=== PATIENT | female | born 1945 | race Caucasian/White ===

== ENCOUNTER 2019-01-27 20:07 | Emergency (ER) | payer MEDICARE, SELFPAY ==
[2019-01-27 20:07] VITALS: BP 129/82; PULSE 72; RESP 18; TEMP 36.6; O2SAT 95; BMI 28.8
--- NOTE | 2019-01-27 22:05 | CT_ITS ---
HISTORY:FALL FALL TECHNIQUE: Multiple axial images were obtained of the brain without intravenous contrast. A radiation dose optimization technique was used for this scan. IV Contrast dosage and agent: None. COMPARISON: None FINDINGS: # of images incl. paperwork: [id number] INFARCT: None HEMORRHAGE: None PARENCHYMAL ATTENUATION:Normal for age MASS: None MIDLINE SHIFT: None BASAL CISTERNS: Patent VENTRICLES: Normal in size and configuration for age PARANASAL SINUSES:Clear MASTOID AIR CELLS: Clear ORBITS:No acute pathology CALVARIUM: No acute pathology OTHER TISSUES: No acute pathology ASPECTS Score for Acute Strokes: 10 CT/Brain/Head without Contrast IMPRESSION: No acute intracranial pathology. Individualized dose optimization techniques were used for this CT. at 2233 Reported and signed by: Nithya Spain DO Electronically Signed: Nithya Spain DO at 22:31 EDT Tel , Service support ,
--- NOTE | 2019-01-27 22:05 | RAD_ITS ---
HISTORY:FALL, PAIN TO RIGHT UPPER ANTERIOR RIBS FALL, PAIN TO RIGHT UPPER ANTERIOR RIBS EXAMINATION/TECHNIQUE: XR Ribs Unilateral W/ PA Chest Min 3 Views: right COMPARISON: None FINDINGS: LINES/DEVICES: None. LUNGS: No consolidation, edema or effusion. No pneumothorax. MEDIASTINUM AND CARDIOVASCULAR STRUCTURES: Cardiac silhouette not enlarged. Central airways and mediastinal contour are unremarkable. There is a hiatal hernia RIBS AND OSSEOUS STRUCTURES: Unremarkable. No evidence of displaced rib fractures. RAD/Ribs Uni Min 3V w/PA Chest IMPRESSION: Hiatal hernia No acute osseous abnormality at 2244 Reported and signed by: Nithya Spain DO Electronically Signed: Nithya Spain DO at 22:42 EDT Tel , Service support ,
--- NOTE | 2019-01-27 22:05 | CT_ITS ---
HISTORY:FALL Comparison:, none TECHNIQUE:CT Spine Cervical W/O Contrast Contiguous axial imagers through the cervical spine with sagittal and coronal reconstructions without intravenous contrast A dose optimization technique was used dring the scan # of images including paperwork:[id number] FINDINGS: Straightening of the normal cervical lordosis There is no spondylolethesis The vertebral body heights are preserved. There is decreased disc space at the level of C4-5 C5-6 and C6-7 No acute fracture. No canal stenosis Mild bilateral neural foraminal narrowing at C2-3 moderate bilaterally at C4-5 C5-6 The odontoid process and lateral masses are unremarkable. No acute soft tisue abnormality There is no apical pneumothorax CT/Spine Cervical without Contras IMPRESSION: Straightening of normal cervical or doses with degenerative change but no evidence of an acute fracture. Individualized dose optimization techniques were used for this CT. at 2234 Reported and signed by: Nithya Spain DO Electronically Signed: Nithya Spain DO at 22:33 EDT Tel , Service support ,
[2019-01-27] MEDS: Diphth,Pertuss(Acell),Tet Vac 0.5 ML Vial IM (22:11)
[2019-01-27 23:00] VITALS: RESP 17
[2019-01-27 23:31] VITALS: BP 167/89; PULSE 68; RESP 17; O2SAT 94
--- NOTE | 2019-01-27 23:43 | ED.DCSUM_ITS ---
- ER Visit Summary Date of Service: 01/27/19 Chief Complaint: Fall History of Present Illness: The patient is a 73 F presenting after fall. Patient states she tripped in her kitchen and fell. She states she landed on her buttock and then her head hit the door jam. She did not lose consciousness. She is not on anticoagulants. She has a bump to the back of her head. She also complains of pain right upper ribs. She states this has started to improve. Denies other complaints. Physical Examination: Vitals are stable. Patient is afebrile. Alert no acute distress. HEENT exam posterior scalp hematoma with abrasion Neck is nontender Lungs are clear and equal bilaterally. Right upper chest wall tenderness with no crepitus Heart is regular rate and rhythm. Abdomen is soft nontender nondistended. Extremities are unremarkable. Skin is warm and dry. No focal neurologic deficit. Remainder of exam is unremarkable. Emergency Department Course and Treatment: Right rib series shows no acute process. CT head and neck show no acute process. She was given Adacel IM. Patient is feeling improved on reevaluation. Advised to follow-up with her primary care physician. Advised return to ED if worsening complaints. Disposition: Discharge home Impression: Status post mechanical fall, closed head injury This note was generated with [employer] dictation software. It may contain incorrect words, spelling, and punctuation that were not noted in review of the chart prior to signing ED Disposition - Plan for ED Patient: Instructions: FALL, Mechanical Referrals: Edda Fish MD [Primary Care Provider] -
[2019-01-27 23:49] VITALS: BP 138/78; PULSE 68; RESP 17; O2SAT 98
== END 2019-01-27 23:49 | disposition home or self-care (01) ==
PROVIDERS: Emergency Provider Emergency Medicine; Family Provider Internal Medicine; PCP Internal Medicine
DX: S00.03XA Contusion of scalp, initial encounter (principal); R07.81 Pleurodynia; W01.198A Fall on same level from slipping, tripping and stumbling with subsequent striking against other object, initial encounter; Y93.9 Activity, unspecified; Y92.000 Kitchen of unspecified non-institutional (private) residence as the place of occurrence of the external cause; Y99.9 Unspecified external cause status; Z79.899 Other long term (current) drug therapy
CPT/HCPCS: 70450; 71101; 72125; 90471; 90715; 99282

== ENCOUNTER 2021-10-25 08:51 | Emergency (ER) | payer MEDICARE, SELFPAY ==
[2021-10-25 08:51] VITALS: BP 118/77; PULSE 84; RESP 18; TEMP 36.3; O2SAT 100; BMI 26.5
--- NOTE | 2021-10-25 09:12 | CT_ITS ---
STUDY: CT FACIAL BONES WITHOUT CONTRAST REASON FOR EXAM: Female, 76 years old. fall, facial pain RADIATION DOSAGE (If Supplied By Facility): CTDIvol = ( 29.38 ) mGy, DLP = ( 532.76 ) mGycm TECHNIQUE: The patient was scanned in a multi detector CT scanner. Sagittal and coronal images were reconstructed. Individualized dose optimization techniques were used for this CT. COMPARISON: None. FINDINGS: Normal soft tissue structures. Normal orbital mathis and orbital contents. Normal nasal bones and anterior nasal spine. Normal facial bones. There is no demonstrated fracture. Normal visualized paranasal sinuses. CT/Sinus/Facial Bone IMPRESSION: Normal unenhanced CT of the facial bones. Electronically Signed: Marvel Yin MD at 10:12 EDT ,
--- NOTE | 2021-10-25 09:12 | CT_ITS ---
STUDY: CT BRAIN WITHOUT CONTRAST REASON FOR EXAM: Female, 76 years old. syncope, fall RADIATION DOSAGE (If Supplied By Facility): CTDIvol = ( 44.99 ) mGy, DLP = ( 779.24 ) mGycm TECHNIQUE: Transaxial CT imaging of the brain was performed without administration of intravenous contrast material. Individualized dose optimization techniques were used for this CT. COMPARISON: No relevant priors. FINDINGS: Normal soft tissue structures. Normal calvarium. Normal size ventricles and extra-axial spaces for the patient''s age. Normal white matter tracts of the cerebral hemispheres. Normal basal ganglia and thalami. Normal brainstem. Normal cerebellum. There is no intracranial hemorrhage. There are no findings of an acute ischemic infarction. Atherosclerotic calcification of the vertebral arteries and cavernous portions of the internal carotid arteries bilaterally. Normal visualized paranasal sinuses. CT/Brain/Head without Contrast IMPRESSION: Normal unenhanced CT scan of the brain. Electronically Signed: Rey Campo MD at 9:56 EDT ,
--- NOTE | 2021-10-25 09:12 | EKG12_ITS ---
Test Reason : SYNCOPE Blood Pressure : / mmHG Vent. Rate : 069 BPM Atrial Rate : 069 BPM P-R Int : 148 ms QRS Dur : 076 ms QT Int : 410 ms P-R-T Axes : 044 008 052 degrees QTc Int : 439 ms Normal sinus rhythm Normal ECG Confirmed by QUINN LANCASTER, JUAN PABLO ([id number]), film editor supervisor JENNIFER MANUEL ([id number]) on 10/26/2021 10:10:58 AM Referred By: DARYL Confirmed By:JUAN PABLO BALL MD
--- NOTE | 2021-10-25 09:13 | EX.ED.DYSGE1 ---
HPI History of Present Illness Chief Complaint: Syncope Informant: patient and spouse/S.O. Onset/Context/Timing Onset: Today Narrative Narrative: Patient presents from home after syncopal episode. She does report having URI symptoms with cough and congestion the past several days. She is not sure if she has had a fever. She has not been eating as much is normal. She became lightheaded today while standing in the bathroom at the sink. She ended up passing out on the kitchen floor and striking her face. She complains of nasal pain. She denies headache or neck pain. She is not on anticoagulants. [facility] Medical History High cholesterol Hx of gastroesophageal reflux (GERD) Hypertension Home Medications Omeprazole [Prilosec] 40 mg PO DAILY 07/28/15 [History Last Taken 10/24/21] hydrochlorothiazide 12.5 mg PO DAILY 01/27/19 [History Last Taken 10/24/21] rosuvastatin 5 mg PO DAILY 10/25/21 [History Last Taken Unknown] Allergy/AdvReac Type Severity Reaction Status Date / Time No Known Allergies Allergy Verified 01/27/19 20:07 Social History Smoking Status: Never smoker ROS ROS ED Constitutional Constitutional ED: Denies chills or fever(s) Eyes Eyes: Denies change in vision ENT ENT ED: Reports other Details: Nasal pain. Epistaxis, resolved ; Denies sore throat Cardiovascular Cardiovascular: Denies chest pain, palpitations or racing heartbeat Respiratory/Chest Respiratory/Chest: Reports cough and sputum; Denies dyspnea Gastrointestinal Gastrointestinal: Reports diarrhea; Denies abdominal pain, nausea or vomiting Genitourinary Genitourinary ED: Denies dysuria Musculoskeletal Musculoskeletal: Denies back pain or neck pain Integumentary Denies rash Neurologic Neurologic: Denies headache(s) or weakness Allergic/Immunologic Allergic/Immunologic ED: Denies urticaria EXAM Physical Exam Const Vital Signs: 10/25/21 08:51 10/25/21 09:17 10/25/21 09:19 Temperature 97.3 F L Temperature Source Tympanic Pulse Rate 84 67 Respiratory Rate 18 18 Respiratory Effort Normal Non-Labored Blood Pressure 118/77 112/67 Blood Pressure Mean 90 82 Pulse Ox 100 96 Oxygen Delivery Method Room Air Room Air 10/25/21 10:19 Temperature Temperature Source Pulse Rate 64 Respiratory Rate 18 Respiratory Effort Blood Pressure 117/69 Blood Pressure Mean 85 Pulse Ox 94 Oxygen Delivery Method Room Air Positive well nourished and well developed General Appearance ED: well developed HEENT Reports moist mucous membranes HEENT Narrative: Tenderness across the nasal bridge. Dried blood in the left nare. Teeth are stable. Eyes PERRL and EOMs intact bilaterally Neck supple Neck Narrative: No C-spine tenderness. Chest Wall inspection of chest normal and palpation of chest normal Resp normal respiratory effort and clear to auscultation bilaterally Cardio regular rate and regular rhythm GI non-tender Palpation: soft Extremity normal to inspection Neuro oriented x3 Neuro Narrative: No focal neurologic deficits. Sensorium / Orientation: alert MDM MDM MDM Narrative Medical decision making narrative: Patient placed on jewel grinder. EKG, CT scan of head and facial bones obtained. Lab work ordered. Swabs for COVID and influenza ordered. Lab Data Attestation: I reviewed the patient's lab results. Labs: Laboratory Results - last 24 hr 10/25/21 10/25/21 09:10 09:10 WBC 7.5 RBC 4.86 Hgb 14.4 Hct 43.0 MCV 88.5 MCH 29.6 MCHC 33.5 RDW Std Deviation 38.8 RDW Coeff of Gayatri 12.0 Plt Count 169 MPV 9.7 Immature Gran % (Auto) 0.400 Neut % (Auto) 73.6 H Lymph % (Auto) 17.4 L [place] % (Auto) 8.2 Eos % (Auto) 0.0 Baso % (Auto) 0.4 Absolute Neuts (auto) 5.5 Absolute Lymphs (auto) 1.30 Nucleated RBC % 0 Sodium 135 L Potassium 3.1 L Chloride 101 Carbon Dioxide 27.0 Anion Gap 7 BUN 23 H Creatinine 1.19 H Estim Creat Clear Calc 34.31 Est GFR (MDRD) Af Amer 57 L Est GFR (MDRD) Non-Af 47 L BUN/Creatinine Ratio 19.3 Glucose 144 H Calcium 9.0 Radiography Diagnostic Testing: Clinical Impression(s) from Imaging Studies Brain CT 10/25/21 09:12 IMPRESSION: Normal unenhanced CT scan of the brain. Electronically Signed: Rey Campo MD at 9:56 EDT , Facial/Sinus 10/25/21 09:12 IMPRESSION: Normal unenhanced CT of the facial bones. Electronically Signed: Marvel Yin MD at 10:12 EDT , EKG Initial EKG: Attestation: I personally reviewed and interpreted this EKG as follows: Interpretation: Sinus Rhythm (Sinus at 69 with no acute ischemia.) Treatment and Re-Evaluation Narrative: Influenza swab is negative. COVID test is positive. CBC is normal. Chemistry studies reveal low potassium at 3.1 and a slight bump in her creatinine. She is given a liter of IV fluids. Potassium was replaced orally. CT scans reveal no acute fractures. After 1 L IV fluids blood pressure is improved. Patient feels stable. She will be discharged home to continue supportive care. Discharge Plan Triage Chief Complaint: Syncope ED Provider: Daisy Kelly Dx/Rx/DC Orders Clinical Impression: COVID-19, Syncope, Hypokalemia Instructions: Coronavirus Disease 2019 (COVID-19): Overview, Coronavirus Disease 2019 (COVID-19): Caring for Yourself or Others, ED Fainting, Uncertain Cause Prescriptions: No Action Omeprazole [Prilosec] 40 MG capsule 40 mg PO DAILY RF: 0 hydrochlorothiazide 12.5 MG capsule 12.5 mg PO DAILY RF: 0 rosuvastatin 5 mg tablet 5 mg PO DAILY RF: 0 Primary Care Provider: Edda Fish Referrals: Edda Fish MD [Primary Care Provider] - 1-2 Weeks Disposition Disposition: Home, Self Care
[2021-10-25 09:17] VITALS: BP 112/67; PULSE 67; RESP 18; O2SAT 96
[2021-10-25] MEDS: 0.9% Normal Saline 1,000 ML 1000 ML IV (09:22)
[2021-10-25 09:26] LABS: Absolute Neutrophil Count 5.5 X10^3/uL (2.0-7.7); Basophil# 0.03 X10^3/uL; Basophil% 0.4 % (0-1); Hemoglobin 14.4 g/dL (12.0-15.0); Lymphocyte % 17.4 % (19-41); Mean Corp Hgb Conc 33.5 g/dL (32-36); Mean Corpuscular Hgb 29.6 pg (27.0-32.0); Mean Corpuscular Volume 88.5 fL (81-99); Mean Platelet Vol. 9.7 fl (6.2-12.0); Monocyte# 0.61 X10^3/uL; Monocyte% 8.2 % (0-10); NRBC Flagged by Analyzer 0 % (0-5); Neutrophil # 5.48 X10^3/uL (2.7-7.7); Neutrophil % 73.6 % (47-70); Platelet Count 169 K/mm3 (150-450); RBC Distribution Width SD 38.8 fl (35.1-43.9); Red Blood Count 4.86 M/mm3 (4.2-5.4); White Blood Count 7.5 K/mm3 (4.4-11.0)
[2021-10-25 09:39] LABS: Anion Gap 7 (5-15); BUN 23 mg/dL (7-18); BUN/Creat Ratio 19.3 RATIO (10-20); Chloride 101 mmol/L (98-107); Creatinine, Serum 1.19 mg/dL (0.55-1.02); EST Glomerular Filtration Rate 47 mL/min (>60); Est Glom Filt Rate - Afr Amer 57 mL/min (>60); Estimated Creatinine Clearance 34.31 ml/min; Glucose 144 mg/dL (74-106); Potassium 3.1 mmol/L (3.5-5.1); Sodium Level 135 mmol/L (136-145)
[2021-10-25 10:19] VITALS: BP 117/69; PULSE 64; RESP 18; O2SAT 94
[2021-10-25] MEDS: Potassium Chloride Oral Tablet 20 MEQ 40 MEQ PO (10:27)
[2021-10-25] MEDS: 0.9% Normal Saline 1,000 ML 150 ML IV (11:40)
[2021-10-25 11:42] VITALS: BP 123/68; PULSE 65; RESP 18; O2SAT 98
[2021-10-25 11:57] VITALS: BP 111/71; PULSE 63; RESP 18; O2SAT 95
== END 2021-10-25 12:23 | disposition home or self-care (01) ==
PROVIDERS: Emergency Provider Emergency Medicine; PCP Internal Medicine; Visit Provider Emergency Medicine
DX: U07.1 COVID-19 (principal); I10 Essential (primary) hypertension; R55 Syncope and collapse; E87.6 Hypokalemia; S09.90XA Unspecified injury of head, initial encounter; W01.10XA Fall on same level from slipping, tripping and stumbling with subsequent striking against unspecified object, initial encounter; Y92.000 Kitchen of unspecified non-institutional (private) residence as the place of occurrence of the external cause; E78.00 Pure hypercholesterolemia, unspecified; Z79.899 Other long term (current) drug therapy
CPT/HCPCS: 70450; 70486; 80048; 85025; 87428; 93005; 96360; 96361; 99285; J7030

== ENCOUNTER 2022-02-09 23:47 | Emergency (ER) | payer MEDICARE, SELFPAY ==
[2022-02-09 23:48] VITALS: BP 172/83; PULSE 67; RESP 16; TEMP 36.7; O2SAT 97; BMI 23.1
[2022-02-10 00:56] VITALS: BP 160/84; PULSE 104; RESP 21
[2022-02-10 01:09] VITALS: BP 167/77; PULSE 68; RESP 18
--- NOTE | 2022-02-10 01:24 | EKG12_ITS ---
Test Reason : DYSRHYTHMIA Blood Pressure : / mmHG Vent. Rate : 066 BPM Atrial Rate : 066 BPM P-R Int : 140 ms QRS Dur : 070 ms QT Int : 428 ms P-R-T Axes : 033 -09 031 degrees QTc Int : 448 ms Normal sinus rhythm Normal ECG Confirmed by QUINN LANCASTER, JUAN PABLO ([id number]), medical editor JENNIFER MANUEL ([id number]) on 02/10/2022 10:40:52 AM Referred By: JAMILA Confirmed By:JUAN PABLO BALL MD
--- NOTE | 2022-02-10 01:24 | CT_ITS ---
STUDY: CT BRAIN WITHOUT CONTRAST REASON FOR EXAM: Female, 76 years old. dizziness RADIATION DOSAGE (If Supplied By Facility): CTDIvol = ( 44.99 ) mGy, DLP = ( 829.85 ) mGycm TECHNIQUE: Transaxial CT imaging of the brain was performed without administration of intravenous contrast material. Individualized dose optimization techniques were used for this CT. COMPARISON: No relevant priors. FINDINGS: Normal soft tissue structures. Normal calvarium. Normal size ventricles and extra-axial spaces for the patient''s age. There are areas of decreased attenuation within the white matter tracts of the supratentorial brain, consistent with microvascular disease changes. Normal basal ganglia and thalami. Normal brainstem. Normal cerebellum. There is no intracranial hemorrhage. There are no findings of an acute ischemic infarction. Normal visualized paranasal sinuses. CT/Brain/Head without Contrast IMPRESSION: Chronic involutional changes of the brain. Electronically Signed: Cori Dia MD at 1:55 EDT ,
[2022-02-10] MEDS: diazePAM 5 MG Tablet 2.5 MG PO ×2 (01:33→02:59)
[2022-02-10 01:56] LABS: Absolute Lymphocyte Count 1.74 X10^3/uL (0.83-4.51); Absolute Neutrophil Count 6.3 X10^3/uL (2.0-7.7); Basophil# 0.04 X10^3/uL; Basophil% 0.5 % (0-1); Eosinophil# 0.05 X10^3/uL; Eosinophils% 0.6 % (0-5); Hematocrit 41.2 % (37-47); Hemoglobin 13.6 g/dL (12.0-15.0); Lymphocyte # 1.74 X10^3/ul (0.83-4.51); Lymphocyte % 19.8 % (19-41); Mean Corpuscular Hgb 29.7 pg (27.0-32.0); Mean Platelet Vol. 9.8 fl (6.2-12.0); Monocyte# 0.62 X10^3/uL; Monocyte% 7.1 % (0-10); NRBC Flagged by Analyzer 0 % (0-5); Neutrophil % 71.8 % (47-70); Platelet Count 211 K/mm3 (150-450); RBC Distribution Width CV 12.2 % (11.6-14.6); RBC Distribution Width SD 40.2 fl (35.1-43.9); Red Blood Count 4.58 M/mm3 (4.2-5.4); White Blood Count 8.8 K/mm3 (4.4-11.0)
[2022-02-10 01:59] LABS: Anion Gap 8 (5-15); BUN 25 mg/dL (7-18); BUN/Creat Ratio 22.3 RATIO (10-20); Calcium,Total 9.1 mg/dL (8.5-10.1); Chloride 107 mmol/L (98-107); Creatinine, Serum 1.12 mg/dL (0.55-1.02); EST Glomerular Filtration Rate 50 mL/min (>60); Est Glom Filt Rate - Afr Amer 61 mL/min (>60); Estimated Creatinine Clearance 47.65 ml/min; Glucose 104 mg/dL (74-106); Sodium Level 140 mmol/L (136-145); Troponin-I HS 6 pg/mL (3.0-54.0)
[2022-02-10 02:39] VITALS: BP 140/71; PULSE 80; RESP 16; O2SAT 95
--- NOTE | 2022-02-10 02:57 | CT_ITS ---
STUDY: CTA HEAD AND NECK WITH CONTRAST REASON FOR EXAM: Female, 76 years old. dizziness RADIATION DOSAGE (If Supplied By Facility): CTDIvol = ( 18.92 ) mGy, DLP = ( 602.77 ) mGycm TECHNIQUE: CT angiography was performed with a multi-detector CT scanner. Data acquisition was obtained from the skull base through the vertex following intravenous administration of IV 100mL [id number]-[id number]. MIP images were reconstructed from the axial data set. Post-processing of the angiographic images was performed, with multiplanar reformation and 3D reconstruction. Individualized dose optimization techniques were used for this CT. COMPARISON: No relevant priors. FINDINGS: Normal bilateral petrous carotid arteries. Normal right cavernous carotid artery with a normal supraclinoid bifurcation. Normal left cavernous carotid artery with a normal supraclinoid bifurcation. Normal right A1 segments of the anterior cerebral artery. Normal left A1 segments of the anterior cerebral artery. Normal intact anterior communicating artery (ACOM). Normal bilateral A2 segments of the anterior cerebral arteries. Normal right M1 and M2 segments of the middle cerebral arteries, with a normal M1 bifurcation. Normal left M1 and M2 segments of the middle cerebral arteries, with a normal M1 bifurcation. Normal right posterior communicating artery (PCOM). There is non-visualization of the left posterior communicating artery (PCOM). Normal bilateral vertebral arteries. Normal basilar artery with a normal basilar bifurcation. The visualized bilateral superior cerebellar (SCA) arteries are normal. Normal bilateral P1, P2 and visualized P3 segments of the posterior cerebral arteries. There is no demonstrated aneurysm of the [place]. There is no demonstrated abnormality of the visualized brain. AORTIC ARCH: Normal visualized aortic arch. Normal origins of the brachiocephalic, left common carotid, and left subclavian arteries. RIGHT CAROTID ARTERIES: Normal right common carotid artery (CCA). Normal right common carotid bulb. Normal origin of the right internal carotid (ICA) artery without a hemodynamically significant stenosis. Normal visualized cervical portion of the right internal carotid artery. Normal origin of the right external carotid artery (ECA). LEFT CAROTID ARTERIES: Normal left common carotid artery (CCA). Normal left common carotid bulb. Normal origin of the left internal carotid (ICA) artery without a hemodynamically significant stenosis. Normal visualized cervical portion of the left internal carotid artery. Normal origin of the left external carotid artery (ECA). VERTEBRAL ARTERIES: Normal bilateral vertebral arteries. CT/CTA Head AND Neck W/ Contrast IMPRESSION: Normal CTA Head and neck with contrast. Electronically Signed: Cori Dia MD at 3:35 EDT ,
[2022-02-10] MEDS: 0.9% Normal Saline 1,000 ML 999 ML IV ×2 (02:59→04:16)
[2022-02-10 04:00] VITALS: BP 143/89; PULSE 83; RESP 19; O2SAT 95
--- NOTE | 2022-02-10 04:34 | EDS_ITS ---
HPI History of Present Illness Chief Complaint: Hypertension Narrative Narrative: Patient is a 76-year-old female with past medical history of hypertension hyperlipidemia and GERD. She states this evening she noticed when she went to get up to go to the bathroom that she felt dizzy. She describes the dizziness as a sense of motion. She states if she would sit down or lie still that the dizziness would seem to resolve but would recur with any motion change. She states that she decided to check her blood pressure because of her symptoms and it was elevated and this concerned her and therefore she comes in for evaluation. The patient denies any chest pain change in vision or shortness of breath associated with this. [facility] Medical History High cholesterol Hx of gastroesophageal reflux (GERD) Hypertension Home Medications Omeprazole [Prilosec] 40 mg PO DAILY 07/28/15 [History Last Taken 10/24/21] hydrochlorothiazide 12.5 mg capsule 12.5 mg PO DAILY 01/27/19 [History Last Taken 10/24/21] rosuvastatin 5 mg tablet 5 mg PO DAILY 10/25/21 [History Last Taken Unknown] Allergy/AdvReac Type Severity Reaction Status Date / Time No Known Allergies Allergy Verified 01/27/19 20:07 Social History Smoking Status: Never smoker ROS ROS ED Constitutional Constitutional ED: Denies chills or fever(s) Eyes Eyes: Denies change in vision ENT ENT ED: Denies sore throat Cardiovascular Cardiovascular: Denies chest pain or palpitations Respiratory/Chest Respiratory/Chest: Denies cough or dyspnea Gastrointestinal Gastrointestinal: Denies abdominal pain, diarrhea, nausea or vomiting Genitourinary Genitourinary ED: Denies dysuria Musculoskeletal Musculoskeletal: Denies myalgias or neck pain Integumentary Denies rash Neurologic Neurologic: Reports other Details: Positive dizziness ; Denies headache(s) Hematologic/Lymphatic Hematologic/Lymphatic: Denies easy bleeding or easy bruising EXAM Physical Exam Const Vital Signs: 02/09/22 23:48 02/09/22 23:54 02/10/22 00:56 Temperature 98.1 F Temperature Source Oral Pulse Rate 67 104 H Respiratory Rate 16 21 H Respiratory Effort Normal Non-Labored Blood Pressure 172/83 H 160/84 H Blood Pressure Mean 112 109 Pulse Ox 97 Oxygen Delivery Method Room Air 02/10/22 01:09 02/10/22 02:39 02/10/22 04:00 Temperature Temperature Source Pulse Rate 68 80 83 Respiratory Rate 18 16 19 H Respiratory Effort Blood Pressure 167/77 H 140/71 H 143/89 H Blood Pressure Mean 107 94 107 Pulse Ox 95 95 Oxygen Delivery Method Room Air Room Air Room Air 02/10/22 05:00 Temperature Temperature Source Pulse Rate 74 Respiratory Rate 16 Respiratory Effort Blood Pressure 142/70 H Blood Pressure Mean 94 Pulse Ox 95 Oxygen Delivery Method Room Air Positive well nourished and well developed General Appearance ED: well developed HEENT Reports dry mucous membranes Mouth ED: Yes dry mucous membranes Mouth: dry mucous membranes Eyes PERRL and EOMs intact bilaterally General Eye ED: Negative for pale conjunctiva Neck supple Resp normal respiratory effort and clear to auscultation bilaterally Cardio regular rate and regular rhythm Rate: other Other Details: Radial pulses are plus 2 out of 4 bilaterally are equal and symmetric GI normal to inspection, nondistended, normoactive bowel sounds, non-tender, non- distended and no masses GI Narrative: No voluntary guarding or rigidity no pulsatile mass Auscultation: normoactive bowel sounds Palpation: soft Extremity normal to inspection Neuro oriented x3 and CN's II-XII intact bilaterally Neuro Narrative: Cranial nerves II through XII are grossly intact there are no focal neurologic deficits. No pronator drift no dysmetria no truncal ataxia. NIH stroke scale score of 0. There is mild horizontal nystagmus noted. Sensorium / Orientation: alert Psych mental status grossly normal Skin no rashes or lesions noted Skin Narrative: Skin turgor slightly increased MDM MDM MDM Narrative Medical decision making narrative: Patient did present to the ER hypertensive but without any treatment blood pressure did reduce to approximately 135/85. She reported that she was dizzy and then checked her blood pressure and noted it was elevated and therefore it is most likely that the dizziness stimulated a physiologic response leading to the hypertension. Still to ensure there is no signs of endorgan damage a basic work-up was obtained. Patient's H&H is stable kidney function normal electrolytes normal and troponin also normal. A noncontrast CT revealed no acute brain pathology. Patient was given 2.5 mg of Valium which seemed to help with the dizziness but did not resolve it and her orthostatic vitals were positive as her blood pressure dropped from approximately 150 down to 109 when she went from sitting to standing. Patient was given 1 L of fluid and ambulation was attempted again and it is much improved from the initial but still not at her baseline. Therefore patient was given a second liter of fluid. On reevaluation neuro exam remained stable and she is able to ambulate with a steady gait indicating her symptoms were secondary to orthostasis. At this time as the dizziness has improved with fluid resuscitation and she is able to ambulate with a steady gait I do not feel patient needs admitted for MRI to check for VBI and she is otherwise safe for discharge Lab Data Attestation: I reviewed the patient's lab results. Labs: Laboratory Results - last 24 hr 02/10/22 02/10/22 02/10/22 00:25 00:25 00:50 WBC Cancelled 8.8 Corrected WBC Cancelled RBC Cancelled 4.58 Hgb Cancelled 13.6 Hct Cancelled 41.2 MCV Cancelled 90.0 MCH Cancelled 29.7 MCHC Cancelled 33.0 RDW Std Deviation Cancelled 40.2 RDW Coeff of Gayatri Cancelled 12.2 Plt Count Cancelled 211 MPV Cancelled 9.8 Immature Gran % (Auto) Cancelled 0.200 Neut % (Auto) Cancelled 71.8 H Lymph % (Auto) Cancelled 19.8 Dickenson % (Auto) Cancelled 7.1 Eos % (Auto) Cancelled 0.6 Baso % (Auto) Cancelled 0.5 Absolute Neuts (auto) Cancelled 6.3 Absolute Lymphs (auto) Cancelled 1.74 Total Counted Cancelled Neutrophils % (Manual) Cancelled Band Neutrophils % Cancelled Lymphocytes % (Manual) Cancelled Monocytes % (Manual) Cancelled Eosinophils % (Manual) Cancelled Basophils % (Manual) Cancelled Metamyelocytes % Cancelled Myelocytes % Cancelled Promyelocytes % Cancelled Blast Cells % Cancelled Plasma Cell % (Manual) Cancelled Other Cells % Cancelled Nucleated RBC % Cancelled 0 Nucleated RBCs/100 WBC Cancelled Differential Comment Cancelled Diff Path Review Cancelled Hypersegmented Neuts Cancelled Atypical Lymphocytes Cancelled Reactive Lymphocytes Cancelled Smudge Cells Cancelled Toxic Granulation Cancelled Toxic Vacuolation Cancelled Dohle Bodies Cancelled Wilbert Rods Cancelled Platelet Estimate Cancelled Plt Morphology Comment Cancelled RBC Morphology Cancelled Polychromasia Cancelled Hypochromasia Cancelled Poikilocytosis Cancelled Basophilic Stippling Cancelled Anisocytosis Cancelled Microcytosis Cancelled Macrocytosis Cancelled Spherocytes Cancelled Sickle Cells Cancelled Target Cells Cancelled Tear Drop Cells Cancelled Ovalocytes Cancelled Stomatocytes Cancelled [place] Bodies Cancelled Li Cells Cancelled Bite Cells Cancelled Crenated Cell Cancelled Acanthocytes (Spur) Cancelled Rouleaux Cancelled Schistocytes Cancelled Sodium 140 Potassium 4.0 Chloride 107 Carbon Dioxide 25.0 Anion Gap 8 BUN 25 H Creatinine 1.12 H Estim Creat Clear Calc 47.65 Est GFR (MDRD) Af Amer 61 Est GFR (MDRD) Non-Af 50 L BUN/Creatinine Ratio 22.3 H Glucose 104 Calcium 9.1 Troponin I High Sens 6 Radiography Diagnostic Testing: Clinical Impression(s) from Imaging Studies Brain CT 02/10/22 01:24 IMPRESSION: Chronic involutional changes of the brain. Electronically Signed: Cori Dia MD at 1:55 EDT , Head/Neck CTA 02/10/22 02:57 IMPRESSION: Normal CTA Head and neck with contrast. Electronically Signed: Cori Dia MD at 3:35 EDT , Discharge Plan Triage Chief Complaint: Hypertension Other Complaint: Dizziness ED Provider: Brendan Wolf Dx/Rx/DC Orders Clinical Impression: Orthostatic dizziness, Dehydration, Hypertension Instructions: Dizziness Fainting Causes Prescriptions: No Action Omeprazole [Prilosec] 40 MG capsule 40 mg PO DAILY hydrochlorothiazide 12.5 MG capsule 12.5 mg PO DAILY rosuvastatin 5 mg tablet 5 mg PO DAILY Primary Care Provider: Edda Fish Referrals: Edda Fish MD [Primary Care Provider] - Activity Restrictions/Additional Instructions: Your work-up today indicates that your dizziness was most likely related to dehydration. Please keep yourself well-hydrated and continue all of your medications as directed by your family doctor. Please return to the ER if he have any further concerns Disposition Disposition: Home, Self Care
[2022-02-10 05:00] VITALS: BP 142/70; PULSE 74; RESP 16; O2SAT 95
[2022-02-10 05:34] VITALS: BP 142/70; PULSE 74; RESP 16; O2SAT 95
== END 2022-02-10 05:35 | disposition home or self-care (01) ==
PROVIDERS: Emergency Provider Emergency Medicine; PCP Internal Medicine; Visit Provider Emergency Medicine
DX: R42 Dizziness and giddiness (principal); E86.0 Dehydration; I10 Essential (primary) hypertension; E78.5 Hyperlipidemia, unspecified; Z79.899 Other long term (current) drug therapy
CPT/HCPCS: 70450; 70496; 70498; 80048; 84484; 85025; 93005; 96360; 96361; 99285; J7030; A4216